=== PATIENT | male | born 1970 | race Caucasian/White ===

== ENCOUNTER → 2016-10-14 | Outpatient (CLI) | payer OTHER ==
[2016-10-14 12:24] LABS: CH 31.4; CHCM 33.6; HCT 44.8 % (39.0-53.0); HDW 2.38; HGB 14.7 gm/dL (13.0-17.5); MCH 30.9 pg (25.0-35.0); MCHC 32.9 g/dL (31.0-37.0); Mean Platelet Volume 6.8; RBC 4.76 m/uL (4.30-5.90); RDW 12.8 % (11.5-15.5); WBC 9.1 k/uL (3.8-10.6)
[2016-10-14 12:37] LABS: Anion Gap 9 mmol/L; Blood Urea Nitrogen 15 mg/dL (9-20); Calcium 9.7 mg/dL (8.4-10.2); Carbon Dioxide 27 mmol/L (22-30); Chloride 102 mmol/L (98-107); Glucose 94 mg/dL (74-99); Non-African American GFR(MDRD) >60 (>60 ml/min/1.73 sqM); Potassium 5.1 mmol/L (3.5-5.1); Sodium 138 mmol/L (137-145)
== END | disposition home or self-care (01) ==
LOC: LABWHC1 11:42
PROVIDERS: ATTEND Internal Medicine Clinical Cardiac Electrophysiology
DX: I25.10 Atherosclerotic heart disease of native coronary artery without angina pectoris (principal); I50.22 Chronic systolic (congestive) heart failure; I25.5 Ischemic cardiomyopathy
CPT/HCPCS: 36415; 80048; 85027

== ENCOUNTER → 2016-11-18 | Outpatient (CLI) | payer OTHER ==
[2016-11-18 10:49] LABS: Basophils % (A) 0 %; CHCM 33.7; Eosinophils # (A) 0.3 k/uL (0-0.7); Eosinophils % (A) 4 %; HCT 42.8 % (39.0-53.0); HDW 2.31; Luc # (Auto) 0.18; Luc % (Auto) 2; Lymphocytes # (A) 2.5 k/uL (1.0-4.8); Lymphocytes % (A) 32 %; MCH 31.2 pg (25.0-35.0); MCHC 32.7 g/dL (31.0-37.0); MCV 95.3 fL (80.0-100.0); Mean Platelet Volume 7.3; Monocytes # (A) 0.4 k/uL (0-1.0); Monocytes % (A) 5 %; Neutrophils # (A) 4.4 k/uL (1.3-7.7); Neutrophils % (A) 56 %; RDW 13.2 % (11.5-15.5); WBC 7.9 k/uL (3.8-10.6); WBC (Perox) 8.04
[2016-11-18 11:00] LABS: Anion Gap 10 mmol/L; Blood Urea Nitrogen 11 mg/dL (9-20); Calcium 9.6 mg/dL (8.4-10.2); Carbon Dioxide 25 mmol/L (22-30); Chloride 105 mmol/L (98-107); Glucose 100 mg/dL (74-99); Non-African American GFR(MDRD) >60 (>60 ml/min/1.73 sqM); Potassium 4.6 mmol/L (3.5-5.1); Sodium 140 mmol/L (137-145)
== END | disposition home or self-care (01) ==
LOC: LABWHC1 10:23
PROVIDERS: ATTEND Internal Medicine Clinical Cardiac Electrophysiology
DX: E78.2 Mixed hyperlipidemia (principal); I25.10 Atherosclerotic heart disease of native coronary artery without angina pectoris
CPT/HCPCS: 36415; 80048; 85025

== ENCOUNTER 2016-11-25 13:06 | Day surgery (SDC) | payer OTHER ==
[2016-11-21 14:05] VITALS: BMI 31.4
[~2016-11-25 13:06] MED LIST: ceFAZolin 1,000 MG in SODIUM CHLORIDE 0.9% IRRIGATIO 250 ML IRRIGATION ONE; ceFAZolin 2 GM in SODIUM CHLORIDE 0.9% 100 ML IVPB ONE
[2016-11-25] MEDS ORDERED: IV FLUID CONTINUATION 1,000 ML IV ONE (15:50)
[2016-11-25] MEDS ORDERED: PROPOFOL 10 MG/ML 20 ML VIAL IV ONE (15:50)
[2016-11-25] MEDS ORDERED: SUCCINYLCHOLINE CHLORIDE 100 MG/5 ML SYR IV ONE (15:50)
[2016-11-25] MEDS ORDERED: fentaNYL (PF) 50 MCG/ML 2 ML AMP ONE (15:50)
[2016-11-25] MEDS ORDERED: MIDAZOLAM 2 MG/2 ML VIAL ONE (15:50)
[2016-11-25] MEDS ORDERED: IOHEXOL 350 MG/ML 50ML BOTTLE INJ ONE (16:08)
[2016-11-25] MEDS ORDERED: LIDOCAINE 1% INJ 10MG/ML (20 ML MDV) SQ ONE ×3 (16:32→17:02)
[2016-11-25] MEDS ORDERED: ceFAZolin 1,000 MG in DEXTROSE/WATER 1 50ML.BAG IVPB STA (17:00)
[2016-11-25] MEDS ORDERED: ACETAMINOPHEN IV (For NPO) 1,000 MG in EMPTY BAG 1 BAG IVPB ONE (17:24)
[2016-11-25] MEDS ORDERED: HYDROcodone/APAP 5-325MG 1 EACH TAB PO PRN (17:24)
[2016-11-25] MEDS ORDERED: ACETAMINOPHEN TAB 325 MG TAB PO PRN (17:24)
--- NOTE | 2016-11-25 18:19 | CE ---
DATE OF SERVICE: A 46-year-old male patient with ischemic cardiomyopathy, congestive heart failure class II, chronic systolic function long-standing who is brought in for a single-chamber ICD implantation of for primary prevention of sudden cardiac . He has known coronary artery disease, old [place], ejection fraction is severely reduced at 30%. Patient was brought to the EP lab in a fasting state. Written informed consent was obtained prior to the procedure. Procedure was performed under general anesthesia. The left shoulder area was prepped and draped as per protocol. 1% lidocaine was used for local anesthesia. A 4 cm incision was made parallel to the deltopectoral groove about 1.5 cm medial to it. The incision was carried down to level of the pectoralis muscle. A subfascial pocket was made. Hemostasis was assured. The left axillary vein was accessed at single point under fluoroscopy and via ( ) sized introducer sheath a [employer]ium lead [place] 4 site SG ActoFix 64 cm single coil lead was positioned in the RV apex. Model number is 0293, serial number [id number]. Lead was screwed in the low RV septum. R waves were greater than 7 to 8 mV, pacing threshold 0.5 v at 0.5 ms. 10 v test was negative. Later the impedance was 502 ohms. Pacing threshold 0.4 v at 0.5 ms. The lead was secured to the underlying pectoralis fascia using 2 nonabsorbable sutures. Pocket was irrigated with antibiotic solution. The lead was connected to the generator ([employer] Kaiima ICD DF4VR, model number D150, serial number [id number]). Lead and the generator were then placed in the subfascial pocket. The wound was closed in 3 layers and dressed per protocol. RESULT: Successful single-chamber ICD implantation for primary prevention of sudden cardiac in this 46-year-old gentleman with chronic ischemic cardiomyopathy with chronic systolic dysfunction class II heart failure and severe LV dysfunction despite guideline directed medical treatment. PLAN: Continue current medications. Follow up with Dr. Beto Roberts. Outpatient DFT testing in the future.
[2016-11-25] MEDS: METOPROLOL TARTRATE 25 MG TAB PO SCH (22:29)
[2016-11-25] MEDS: ceFAZolin 2 GM in SODIUM CHLORIDE 0.9% 100 ML IVPB SCH (22:29)
[2016-11-26] MEDS: ceFAZolin 2 GM in SODIUM CHLORIDE 0.9% 100 ML IVPB SCH ×3 (04:59→16:20)
--- NOTE | 2016-11-26 07:42 | XR ---
EXAMINATION TYPE: XR chest 2V DATE OF EXAM: 11/26/2016 6:47 AM COMPARISON: Prior chest x-ray February HISTORY: Lead placement check TECHNIQUE: Frontal and lateral views of the chest are obtained. FINDINGS: Intracardiac defibrillator lead is present within the right ventricle. No pneumothorax or pleural effusion. Generator in the left pectoral region. There are overlying cardiac leads. Cardiac m ediastinal silhouette, pulmonary vascularity and rocio are stable. IMPRESSION: No evident complication status post intracardiac defibrillator placement
--- NOTE | 2016-11-26 07:46 | DS ---
DATE OF ADMISSION: 11/25/2016 DATE OF DISCHARGE: Ridge Campos is a 46-year-old male patient who was admitted for evaluation and management of risk of sudden cardiac . He has chronic systolic dysfunction with chronic class 2 heart failure symptoms, with LV systolic dysfunction, ejection fraction of 30% despite medical treatment, old [place], known CAD. He underwent a single-chamber ICD implantation yesterday. He is receiving antibiotics, now for a chest x-ray and device interrogation. She should be able to go home. On examination, his vitals are stable. Blood pressure is 120/65 mmHg, respirations are normal. He is afebrile at 97 degrees Fahrenheit. There is no hematoma over the site. No swelling. There is minimal tenderness. Breath sounds are normal. No rhonchi. No crackles. Heart sounds are normal. Normal S1, normal S2. No murmurs, no gallops. No JVD. He is lying comfortably in bed. Abdomen is soft, nontender. IMPRESSION: 1. Severe ischemic cardiomyopathy, left ventricular ejection fraction chronically reduced at 30%, class 2 heart failure. 2. Coronary artery disease, status post old myocardial infarction on appropriate guideline-directed medical treatment. PLAN: Continue medical treatment. Follow up in the [facility] in 5 days. Follow up with Dr. Beto Roberts as scheduled and follow up with Dr. Latanya Saavedra as scheduled.
[2016-11-26] MEDS ORDERED: LISINOPRIL 5 MG TAB PO SCH (09:00)
[2016-11-26] MEDS ORDERED: ATORVASTATIN 80 MG TAB PO SCH (09:00)
[2016-11-26] MEDS ORDERED: SPIRONOLACTONE 25 MG TAB PO SCH (09:00)
[2016-11-26] MEDS ORDERED: CLOPIDOGREL 75 MG TAB PO SCH (09:00)
[2016-11-26] MEDS ORDERED: ASPIRIN 81 MG CHEW PO SCH (09:00)
[2016-11-26] MEDS: LACTATED RINGERS 1,000 ML IV SCH (09:04)
[2016-11-26] MEDS: SODIUM CHLORIDE 0.9% 1,000 ML IV SCH (09:05)
[2016-11-26] MEDS: METOPROLOL TARTRATE 25 MG TAB PO SCH (09:07)
[2016-11-26 12:56] VITALS: RESP 18
[2016-11-26 16:38] VITALS: BP 112/69; PULSE 77; TEMP 98.7
== END 2016-11-26 18:45 | disposition home or self-care (01) ==
LOC: CATHEP 13:06 → 3OBS 17:21 → CATHEP 11-26 18:45
PROVIDERS: ATTEND Internal Medicine Clinical Cardiac Electrophysiology
DX: I25.5 Ischemic cardiomyopathy (principal); I25.10 Atherosclerotic heart disease of native coronary artery without angina pectoris; I11.0 Hypertensive heart disease with heart failure; I50.22 Chronic systolic (congestive) heart failure; Z00.6 Encounter for examination for normal comparison and control in clinical research program; F17.210 Nicotine dependence, cigarettes, uncomplicated; Z79.02 Long term (current) use of antithrombotics/antiplatelets; Z79.82 Long term (current) use of aspirin; Z79.899 Other long term (current) drug therapy; E78.5 Hyperlipidemia, unspecified; I25.2 Old myocardial infarction
CPT/HCPCS: 33249; 71020; C1892; C1769; C1777; C1722; J2250; J0690 ×4; J2001; J3010; J0330; J2704; Q9967

== ENCOUNTER → 2017-02-23 | Outpatient (CLI) | payer OTHER ==
[2017-02-23 11:58] LABS: Basophils # (A) 0.1 k/uL (0-0.2); Basophils % (A) 1 %; CH 32.2; CHCM 33.6; Eosinophils # (A) 0.2 k/uL (0-0.7); Eosinophils % (A) 3 %; HCT 41.5 % (39.0-53.0); HDW 2.32; HGB 13.6 gm/dL (13.0-17.5); Luc # (Auto) 0.11; Luc % (Auto) 1; Lymphocytes # (A) 2.7 k/uL (1.0-4.8); Lymphocytes % (A) 33 %; MCH 31.5 pg (25.0-35.0); MCHC 32.7 g/dL (31.0-37.0); MCV 96.2 fL (80.0-100.0); Mean Platelet Volume 7.7; Monocytes # (A) 0.3 k/uL (0-1.0); Monocytes % (A) 4 %; Neutrophils # (A) 4.7 k/uL (1.3-7.7); Neutrophils % (A) 59 %; RBC 4.31 m/uL (4.30-5.90); RDW 13.2 % (11.5-15.5)
[2017-02-23 12:06] LABS: Anion Gap 11 mmol/L; Blood Urea Nitrogen 11 mg/dL (9-20); Calcium 9.5 mg/dL (8.4-10.2); Carbon Dioxide 23 mmol/L (22-30); Chloride 105 mmol/L (98-107); Glucose 95 mg/dL (74-99); Non-African American GFR(MDRD) >60 (>60 ml/min/1.73 sqM); Potassium 4.9 mmol/L (3.5-5.1); Sodium 139 mmol/L (137-145)
== END | disposition home or self-care (01) ==
LOC: LABWHC1 11:25
PROVIDERS: ATTEND Internal Medicine Clinical Cardiac Electrophysiology
DX: I50.22 Chronic systolic (congestive) heart failure (principal)
CPT/HCPCS: 36415; 80048; 85025

== ENCOUNTER 2017-02-26 06:25 | Day surgery (SDC) | payer OTHER ==
[2017-02-23 10:26] VITALS: BMI 32.5
[~2017-02-26 06:25] MED LIST changes: +LACTATED RINGERS 1,000 ML IV SCH; +SODIUM CHLORIDE 0.9% 1,000 ML IV SCH; -ceFAZolin 1,000 MG in SODIUM CHLORIDE 0.9% IRRIGATIO 250 ML IRRIGATION ONE; -ceFAZolin 2 GM in SODIUM CHLORIDE 0.9% 100 ML IVPB ONE
[2017-02-26 07:20] VITALS: TEMP 97.8
[2017-02-26] MEDS ORDERED: PROPOFOL 10 MG/ML 20 ML VIAL IV ONE (07:39)
[2017-02-26] MEDS ORDERED: MIDAZOLAM 2 MG/2 ML VIAL ONE (07:39)
[2017-02-26] MEDS ORDERED: IV FLUID CONTINUATION 500 ML IV ONE (07:44)
[2017-02-26 09:27] VITALS: BP 121/68; PULSE 70; RESP 18
--- NOTE | 2017-02-26 20:35 | PCN ---
This is a 46-year-old male patient who has severe ischemic cardiomyopathy; ejection 30% to 35%; with at least class 2 heart failure, chronic systolic dysfunction, who had a single-chamber ICD implanted. he was brought in for DFT testing under anesthesia. He has a [employer] device Dynagen ICD [id number]. R waves 20 mV. Pacing impedance 478 ohms. Pacing threshold 0.7 v at 0.5 ms. Shock impedance 68 ohms. Shock and T-wave protocol was used to induce ventricular fibrillation. This was adequately and appropriately detected at least sensitivity and an 11-joule shock was unsuccessful. Charge time 1.8 seconds. Shock impedance 16 ohms. Polarity initial. A 21-joule shock succeeded in defibrillating the patient. Charge time 3.6 seconds. Shock impedance 58 ohms. Polarity initial. There was no post-shock noise. Two to 3 dropouts were noted at this time. The device was then reprogrammed according to the MADIT-RIT programming with VT1 zone at 175 beats per minute, VT2 at 205 beats per minute and VF zone at 240 beats per minute with appropriate anti-tachycardia pacing, cardioversions and defibrillations. First cardioversion at 21 joules. First defibrillation in the VF zone at 41 joules. IMPRESSION: 1. Normal ICD parameters. 2. High DFT and the device reprogrammed appropriately. PLAN: Continue medical treatment and gradual maximization of medical treatment. Follow up with Dr. Yana Roberts. [facility] CENTERCarlitos
== END 2017-02-26 09:35 | disposition home or self-care (01) ==
LOC: CATHEP 06:25
PROVIDERS: ATTEND Internal Medicine Clinical Cardiac Electrophysiology
DX: Z45.02 Encounter for adjustment and management of automatic implantable cardiac defibrillator (principal); I25.5 Ischemic cardiomyopathy; I25.10 Atherosclerotic heart disease of native coronary artery without angina pectoris; I11.0 Hypertensive heart disease with heart failure; I50.22 Chronic systolic (congestive) heart failure; Z79.02 Long term (current) use of antithrombotics/antiplatelets; Z79.82 Long term (current) use of aspirin; Z79.899 Other long term (current) drug therapy
CPT/HCPCS: 93642; J2250; J2704

== ENCOUNTER → 2018-01-12 | Outpatient (CLI) | payer OTHER ==
--- NOTE | 2018-01-12 18:12 | XR ---
EXAMINATION TYPE: XR calcaneus 2V RT DATE OF EXAM: 01/12/2018 COMPARISON: NONE HISTORY: Heel pain for months TECHNIQUE: 2 views FINDINGS: There is a plantar calcaneal spur. There are small Achilles calcaneal spur. I see no fractu re nor dislocation. Subtalar joint appears normal. IMPRESSION: Calcaneal spurring.
== END | disposition home or self-care (01) ==
LOC: RADXRMAIN 16:13
PROVIDERS: ATTEND Podiatrist
DX: M77.31 Calcaneal spur, right foot (principal)

== ENCOUNTER → 2018-05-20 | Outpatient (CLI) | payer OTHER ==
[2018-05-21 02:12] LABS: Anion Gap 5.7 mmol/L (4.00-12.00); Calcium 9.5 mg/dL (8.7-10.3); Carbon Dioxide 26.3 mmol/L (21.6-31.8); Potassium 4.9 mmol/L (3.5-5.5)
== END | disposition home or self-care (01) ==
LOC: LABWHC1 15:00
PROVIDERS: ATTEND Internal Medicine Cardiovascular Disease
DX: I10 Essential (primary) hypertension (principal)
CPT/HCPCS: 36415; 80048

== ENCOUNTER → 2021-02-15 | Outpatient (CLI) | payer MEDICARE ==
[2021-02-16 03:26] LABS: Chol/HDL Ratio 3.5; LDL Cholesterol,Calculated 38.6 mg/dL (0.0-131.0); VLDL Calculation 21.4 mg/dL (5.00-40.00)
== END | disposition home or self-care (01) ==
LOC: LABWHC1 10:22
PROVIDERS: ATTEND Internal Medicine
DX: E78.5 Hyperlipidemia, unspecified (principal); I25.10 Atherosclerotic heart disease of native coronary artery without angina pectoris
CPT/HCPCS: 36415; 80061

== ENCOUNTER → 2021-05-01 | Outpatient (CLI) | payer MEDICARE ==
[2021-05-01 20:51] LABS: Chol/HDL Ratio 3.15 Ratio; HDL Cholesterol 32.1 mg/dL (40.00-60.00); LDL Cholesterol,Calculated 43.9 mg/dL (0.0-131.0)
== END | disposition home or self-care (01) ==
LOC: LABWHC1 14:11
PROVIDERS: ATTEND Internal Medicine
DX: E78.2 Mixed hyperlipidemia (principal)
CPT/HCPCS: 36415; 80061; 84450; 84460

== ENCOUNTER → 2023-04-09 | Outpatient (CLI) | payer MEDICARE ==
[2023-04-09 17:45] LABS: ALT 39 U/L (10-49); AST 25 U/L (14-35); Chol/HDL Ratio 2.74 Ratio; LDL Cholesterol,Calculated 36.6 mg/dL (0.0-131.0)
== END | disposition home or self-care (01) ==
LOC: LABWHC1 08:46
PROVIDERS: ATTEND Internal Medicine
DX: E78.2 Mixed hyperlipidemia (principal)
CPT/HCPCS: 36415; 80061; 84450; 84460

== ENCOUNTER → 2024-05-05 | Outpatient (CLI) | payer MEDICARE ==
[2024-05-05 15:38] LABS: ALT 43 U/L (10-49); AST 23 U/L (14-35); Chol/HDL Ratio 2.62 Ratio; LDL Cholesterol,Calculated 48.6 mg/dL (0.0-131.0); VLDL Calculation 17.58 mg/dL (5.00-40.00)
== END | disposition home or self-care (01) ==
LOC: LABWHC1 11:00
PROVIDERS: ATTEND Internal Medicine
DX: E78.2 Mixed hyperlipidemia (principal)
CPT/HCPCS: 36415; 80061; 84450; 84460